=== PATIENT | male | born 1985 | race Caucasian/White ===

== ENCOUNTER → 2018-01-14 | Day surgery (SDC) | payer BC ==
[~2018-01-14] VITALS: Ht 193 cm; Wt 148.6 kg
[~2018-01-14] MED LIST: CARTIA XT180 MG PO; ELIQUIS 2.5 PO; MULTAQ400 MG PO; PRINIVIL20 MG PO
[2018-01-14 06:15] VITALS: BP 142/87; PULSE 75
[2018-01-14 07:35] VITALS: BP 165/74; PULSE 109
[2018-01-14 07:36] VITALS: BP 148/70; PULSE 105
== END ==
LOC: COL.CAR 05:45
DX: R06.02 Shortness of breath (principal)
CPT/HCPCS: A9502; J2785